=== PATIENT | female | born 1975 | race Caucasian/White ===

== ENCOUNTER 2018-04-19 07:10 | Day surgery (SDC) | payer BC ==
[~2018-04-19] VITALS: Ht 165.1 cm; Wt 81.7 kg
[~2018-04-19 07:10] MED LIST: AMLO10/10; ATOR10; LEVSOD100 PO; LOSA50; PANT40 PO; SERT50 PO; TEMA30 PO
== END 2018-04-19 09:50 | disposition home or self-care (01) ==
LOC: ORSCSDS 07:10
PROVIDERS: Orthopaedic Surgery
PROC: 01N54ZZ Release Median Nerve, Percutaneous Endoscopic Approach (ICD-10-PCS; principal; 2018-04-19 08:30)
DX: G56.03 Carpal tunnel syndrome, bilateral upper limbs (principal); F17.210 Nicotine dependence, cigarettes, uncomplicated
CPT/HCPCS: J0690; J2250; J3010; J7120

== ENCOUNTER 2020-09-01 12:07 | Day surgery (SDC) | payer BC ==
[~2020-09-01] VITALS: Ht 165.1 cm; Wt 81.5 kg
[~2020-09-01 12:07] MED LIST changes: +LOSA50 PO
[2020-09-01] MEDS ORDERED: AMLO10 PO (13:00)
--- NOTE | 2020-09-01 15:01 | NUR ---
09/01/20 1501 Amanda Sepulveda LATE ENTRY: PT STATES SHE NEEDS TO URINATE. PT UP FROM [facility] TO [facility] WITH TWO PERSON ASSIST, SHE SUPPORTS HERSELF ON HER RIGHT NON-OPERATIVE FOOT. SHE VOIDS 100ML STEPHANIE COLOR URINE WITHOUT ANY DIFFICULTY. SHE THEN IS ABLE TO BOUNCE HERSELF BACKWARDS TOWARD RECLINER WITH TWO PERSON ASSIST WITHOUT ANY DIFFICULTY. SHE IS TOLERATING FOOD AND FLUIDS. VSS. NO NAUSEA. SHE CAN MOVE ALL FOUR EXTREMITIES. LEFT FOOT IS NUMB FROM THE BLOCK HOWEVER SHE CAN BEND AT THE KNEE.
== END 2020-09-01 15:25 | disposition home or self-care (01) ==
LOC: ORSCSDS 12:07
PROVIDERS: Orthopaedic Surgery
PROC: 0LQT0ZZ Repair Left Ankle Tendon, Open Approach (ICD-10-PCS; principal; 2020-09-01 13:30)
PROC: 0QBM0ZX Excision of Left Tarsal, Open Approach, Diagnostic (ICD-10-PCS; principal; 2020-09-01 13:30)
DX: M25.775 Osteophyte, left foot (principal); M76.72 Peroneal tendinitis, left leg; I10 Essential (primary) hypertension; E78.5 Hyperlipidemia, unspecified; Z87.891 Personal history of nicotine dependence; Z79.899 Other long term (current) drug therapy
CPT/HCPCS: J0171; J0690; J1100; J2250; J2704; J2795; J3010; J7120

== ENCOUNTER → 2021-05-12 | Outpatient (CLI) | payer BC ==
[~2021-05-12] MED LIST changes: +AMLO10 PO
== END | disposition home or self-care (01) ==
LOC: LAB 10:45 → LAB SHORT 10:45
DX: E28.310 Symptomatic premature menopause (principal)
CPT/HCPCS: 82533; 82670; 84403

== ENCOUNTER → 2021-12-22 | Outpatient (CLI) | payer BC ==
[2021-12-23 16:11] LABS: HPV 16 Negative (Negative); HPV 18 Negative (Negative); HPV OTHER HR TYPES Negative (Negative)
== END | disposition home or self-care (01) ==
LOC: LAB 14:35 → LAB SHORT 14:35
PROVIDERS: Family Medicine
DX: Z12.4 Encounter for screening for malignant neoplasm of cervix (principal)
CPT/HCPCS: 87624; G0123

== ENCOUNTER → 2022-07-18 | Outpatient (CLI) | payer BC | LOC: LAB 18:35 → LAB SHORT 18:35 | DX: J02.9 Acute pharyngitis, unspecified (principal) | CPT/HCPCS: 87081; 87147 ==

== ENCOUNTER 2024-02-22 11:53 | Day surgery (SDC) | payer BC ==
[~2024-02-22] VITALS: Ht 165.1 cm; Wt 79.9 kg
[~2024-02-22 11:53] MED LIST changes: +Lactated Ringer's 1,000 ML IV ONE; +propofoL 50 ML IV ONE
[2024-02-22] MEDS ORDERED: MODA200 (12:28)
[2024-02-22] MEDS ORDERED: METF500 (12:28)
[2024-02-22] MEDS ORDERED: ASPI81CH (12:28)
[2024-02-22] MEDS ORDERED: OZEMPIC0.25 MG/02 (12:29)
[2024-02-22] MEDS ORDERED: LOSA25 (12:29)
[2024-02-22] MEDS ORDERED: Lactated Ringer's 1,000 ML IV ONE (12:49)
[2024-02-22] MEDS ORDERED: Midazolam HCL 1 MG/ML 5MLVIAL ONE (13:19)
[2024-02-22 14:21] VITALS: BP 108/78
== END 2024-02-22 14:15 | disposition home or self-care (01) ==
LOC: ORSCSDS 11:53
PROVIDERS: Internal Medicine Gastroenterology
PROC: 0DBL8ZX Excision of Transverse Colon, Via Natural or Artificial Opening Endoscopic, Diagnostic (ICD-10-PCS; principal; 2024-02-22 13:00)
DX: Z12.11 Encounter for screening for malignant neoplasm of colon (principal); D12.3 Benign neoplasm of transverse colon; Z83.719 Family history of colon polyps, unspecified; I10 Essential (primary) hypertension; G47.33 Obstructive sleep apnea (adult) (pediatric); E78.5 Hyperlipidemia, unspecified; Z79.84 Long term (current) use of oral hypoglycemic drugs; Z79.82 Long term (current) use of aspirin; Z79.899 Other long term (current) drug therapy
CPT/HCPCS: 88305; J2250; J2704; J7120